=== PATIENT | male | born 1955 | race Caucasian/White ===

== ENCOUNTER 2016-08-14 08:33 | Day surgery (SDC) | payer OTHER ==
[~2016-08-14] VITALS: Ht 182.9 cm; Wt 84.1 kg
[~2016-08-14 08:33] MED LIST: ASPI81 PO; BESIFLOXACIN HCL 0.6% 5 ML OPHTHALMIC SUSPENSION OS ONE; DICLOFENAC SODIUM 0.1% 2.5 ML OPHTHALMIC SOLUTION OS ONE; RINGERS SOLUTION,LACTATED 500 ML IV ONE; VERA180SR PO; [UNRECOGNIZED DRUG - CODE] PO
[2016-08-14] MEDS ORDERED: DICLOFENAC SODIUM 0.1% 2.5 ML OPHTHALMIC SOLUTION ONE (08:59)
[2016-08-14] MEDS ORDERED: RINGERS SOLUTION,LACTATED 500 ML IV ONE (08:59)
[2016-08-14] MEDS ORDERED: TROPICAMIDE 1% 2 ML OPHTHALMIC SOLUTION ONE (09:00)
[2016-08-14] MEDS ORDERED: BESIFLOXACIN HCL 0.6% 5 ML OPHTHALMIC SUSPENSION ONE (09:00)
[2016-08-14] MEDS ORDERED: PHENYLEPHRINE HCL 2.5% 2 ML OPHTHALMIC SOLUTION ONE (09:00)
[2016-08-14] MEDS ORDERED: ATOR10TA84 PO (09:21)
[2016-08-14] MEDS: PHENYLEPHRINE HCL 2.5% 2 ML OPHTHALMIC SOLUTION OS SCH ×2 (09:45→09:50)
[2016-08-14] MEDS: TROPICAMIDE 1% 2 ML OPHTHALMIC SOLUTION OS SCH ×2 (09:45→09:50)
[2016-08-14] MEDS ORDERED: HYALURONATE SODIUM 12 MG/ML 0.8 ML SYRINGE IO ONE (12:00)
[2016-08-14] MEDS ORDERED: LIDOCAINE HCL/PF 1% 2 ML VIAL INJ ONE (12:00)
[2016-08-14] MEDS ORDERED: FentaNYL CITRATE-PF 100 MCG/2 ML VIAL IVP ONE (12:00)
[2016-08-14] MEDS ORDERED: MIDAZOLAM HCL 2 MG/2 ML VIAL IVP ONE (12:00)
[2016-08-14] MEDS ORDERED: POVIDONE-IODINE 15 ML SOLUTION UD TP ONE (12:00)
[2016-08-14] MEDS ORDERED: TETRACAINE HCL 0.5% 2 ML OPHTHALMIC SOLUTION OS ONE (12:00)
[2016-08-14] MEDS ORDERED: HYALURONATE SOD/CHONDROITIN SOD 0.5 ML VIAL IO ONE (12:00)
[2016-08-14] MEDS ORDERED: BALANCED SALT 15 ML OPHTHALMIC IRRIG.SOLN OS ONE (12:00)
== END 2016-08-14 11:45 | disposition home or self-care (01) ==
LOC: SURGERY 08:33
PROVIDERS: ATTEND Specialist
DX: H25.012 Cortical age-related cataract, left eye (principal); I10 Essential (primary) hypertension; F17.200 Nicotine dependence, unspecified, uncomplicated; Z98.41 Cataract extraction status, right eye; Z98.890 Other specified postprocedural states
CPT/HCPCS: 66982; 93005; C1780; J2250; J3010; J7120; J3490